=== PATIENT | female | born 1990 | race African-American/Black ===

== ENCOUNTER 2017-02-08 03:42 | Emergency (ER) | payer OTHER | END 2017-02-08 05:15 | disposition home or self-care (01) | LOC: CED 03:42 | DX: L50.9 Urticaria, unspecified (principal); I10 Essential (primary) hypertension; F17.210 Nicotine dependence, cigarettes, uncomplicated; Z88.8 Allergy status to other drugs, medicaments and biological substances | CPT/HCPCS: 99282 ==